=== PATIENT | male | born 1955 | race Caucasian/White ===

== ENCOUNTER → 2016-12-16 | Outpatient (CLI) | payer BC ==
[~2016-12-16] VITALS: Ht 180.3 cm; Wt 98.6 kg
[~2016-12-16] MED LIST: ASPEC81 PO; ATOR-24 PO; BNC40 PO; GLC500 PO; MULT-506 PO; NSP500 PO; [UNRECOGNIZED DRUG - OTHER]
[2016-12-16 15:59] VITALS: BP 149/81; PULSE 64; Ht 180.3 cm; Wt 98.6 kg
== END | disposition home or self-care (01) ==
LOC: C.NEUR 15:38
PROVIDERS: ATTEND Internal Medicine Pulmonary Disease
DX: G47.30 Sleep apnea, unspecified (principal); I10 Essential (primary) hypertension

== ENCOUNTER → 2018-01-19 | Outpatient (CLI) | payer OTHER ==
[~2018-01-19] VITALS: Ht 177.8 cm; Wt 98.0 kg
[2018-01-19 16:29] VITALS: BP 139/85; PULSE 62; Ht 177.8 cm; Wt 98.0 kg
== END | disposition home or self-care (01) ==
LOC: C.NEUR 15:15
PROVIDERS: ATTEND Physician Assistant
DX: G47.30 Sleep apnea, unspecified (principal)